=== PATIENT | female | born 1995 | race American Indian/Alaskan Native ===

== ENCOUNTER 2019-03-25 03:21 | Emergency (ER) | payer SELFPAY ==
[2019-03-25] MEDS ORDERED: IPRATROPIUM 0.02% NEBU 2.5 ML IH ONE ×3 (03:40→03:48)
[2019-03-25] MEDS ORDERED: ALBUTEROL 2.5 MG/3 ML NEBU IH ONE ×3 (03:40→03:48)
[2019-03-25 04:14] VITALS: BP 121/76
[2019-03-25] MEDS ORDERED: predniSONE 20 MG TAB PO ONE (04:52)
--- NOTE | 2019-03-25 04:52 | XRay Report ---
CHEST 1 VIEW, 03/25/2019 4:06 AM CLINICAL INFORMATION/INDICATION: Cough. Shortness of breath COMPARISON: None FINDINGS: SUPPORT DEVICES: None. HEART: The cardiac silhouette is normal in size. LUNGS/PLEURA: No focal airspace consolidation or significant pleural effusion is identified. ADDITIONAL FINDINGS: No additional acute findings. IMPRESSION: 1. No evidence of acute cardiopulmonary process. Signer Name: Alice Freeman MD Signed: 03/25/2019 4:48 AM Workstation Name: [id number]
--- NOTE | 2019-03-25 04:56 | Emergency Department Report ---
ED Asthma HPI - General Chief Complaint: Adult Asthma Stated Complaint: ASTHMA FATOUMATA Time Seen by Provider: 03/25/19 03:49 Source: patient Mode of arrival: Ambulatory Limitations: No Limitations - History of Present Illness Initial Comments: Patient is a 23-year-old female who has a past medical history of asthma who is here for asthma exacerbation. Patient has been coughing and had some shortness of breath with wheezing for the last 2 days. Patient ran out of her albuterol inhaler. Patient denies fevers chills body aches and sore throat or neck stiffness. - Related Data Previous Rx's Medication Instructions Recorded Last Taken Type ALBUTEROL Inhaler (OR & NICU) 2 puff IH QID PRN #1 inhalation 03/25/19 Unknown Rx [ProAir HFA Inhaler] predniSONE [Deltasone] 20 mg PO QDAY #5 tab 03/25/19 Unknown Rx ED Review of Systems ROS: Stated complaint: ASTHMA FATOUMATA Other details as noted in HPI Comment: All other systems reviewed and negative ED Past Medical Hx - Past Medical History Previous Medical History?: Yes Hx Asthma: Yes Additional medical history: bronchitis - Surgical History Past Surgical History?: No - Social History Smoking Status: Current Every Day Smoker Substance Use Type: Alcohol, Marijuana - Medications Home Medications: Home Medications Medication Instructions Recorded Confirmed Last Taken Type ALBUTEROL Inhaler (OR & NICU) 2 puff IH QID PRN #1 inhalation 03/25/19 Unknown Rx [ProAir HFA Inhaler] predniSONE [Deltasone] 20 mg PO QDAY #5 tab 03/25/19 Unknown Rx ED Physical Exam - General Limitations: No Limitations General appearance: alert, in no apparent distress - Head Head exam: Present: atraumatic, normocephalic - Eye Eye exam: Present: normal appearance, PERRL, EOMI - ENT ENT exam: Present: normal orophraynx, mucous membranes moist - Neck Neck exam: Present: normal inspection - Respiratory Respiratory exam: Present: respiratory distress, wheezes, decreased breath sounds. Absent: normal lung sounds bilaterally, rales, rhonchi - Cardiovascular Cardiovascular Exam: Present: regular rate, normal rhythm, normal heart sounds. Absent: systolic murmur, diastolic murmur, rubs, gallop - GI/Abdominal GI/Abdominal exam: Present: soft, normal bowel sounds. Absent: distended, tenderness, guarding, rebound - Extremities Exam Extremities exam: Present: normal inspection - Back Exam Back exam: Present: normal inspection - Neurological Exam Neurological exam: Present: alert, oriented X3 - Psychiatric Psychiatric exam: Present: normal affect, normal mood - Skin Skin exam: Present: warm, dry, intact, normal color. Absent: rash ED Course Vital Signs 03/25/19 03/25/19 03/25/19 03:26 03:58 04:13 Temperature 98.4 F 98.3 F Pulse Rate 86 100 H Pulse Rate [ 86 Bilateral] Respiratory 14 20 Rate Respiratory 22 Rate [Bilateral ] Blood Pressure 129/84 Blood Pressure 121/76 [Left] O2 Sat by Pulse 99 100 Oximetry ED Medical Decision Making - Radiology Data Chest x-ray shows no acute process - Medical Decision Making Patient received neb treatment and prednisone and she having improvement of her breathing and has better air movement. Patient stable for discharge. Critical care attestation.: If time is entered above; I have spent that time in minutes in the direct care of this critically ill patient, excluding procedure time. ED Disposition Clinical Impression: Acute asthma exacerbation Qualifiers: Asthma severity: moderate Asthma persistence: unspecified Qualified Code(s): J45.901 - Unspecified asthma with (acute) exacerbation Disposition: DC-01 TO HOME OR SELFCARE Is pt being admited?: No Does the pt Need Aspirin: No Condition: Stable Instructions: Asthma (ED) Referrals: BURT FRANK MD [Referring] - 3-5 Days Time of Disposition: 04:56
== END 2019-03-25 05:45 | disposition home or self-care (01) ==
LOC: ED 03:21
DX: J45.901 Unspecified asthma with (acute) exacerbation (principal); F17.200 Nicotine dependence, unspecified, uncomplicated; F10.10 Alcohol abuse, uncomplicated; F12.10 Cannabis abuse, uncomplicated; Z79.899 Other long term (current) drug therapy
CPT/HCPCS: 71045; 94640; 99283; J7512; 94644